=== PATIENT | female | born 1965 | race African-American/Black ===

== ENCOUNTER 2017-04-01 15:04 | Emergency (ER) | payer BC ==
[~2017-04-01] VITALS: Ht 172.7 cm; Wt 77.2 kg
[~2017-04-01 15:04] MED LIST: CEPHALEXIN500 MG OR; DULCOLAX5 MG OR; FOLIC ACID1 MG PO; LEVOTHROID25 MCG; NO HOME MEDS; ROBITUSSIN AC OR; TRAMADOL HCL50 MG OR; ULTRAM50 MG OR
[2017-04-01 16:53] LABS: HEMATOCRIT 39.5 % (37.0-47.0); HEMOGLOBIN 12.5 g/dl (12.0-16.0); IMMATURE GRANULOCYTES 0.3 % (0.0-1.0); MEAN CORPUSCULAR HGB 23.4 pG CALC (26.0-32.0); MEAN CORPUSCULAR HGB CONC 31.6 g/L CALC (32.0-36.0); NEUT# 5.66 thou/uL (2.00-7.15); RED BLOOD COUNT 5.34 mill/uL (4.20-5.60); RED CELL DISTRI WIDTH 14.4 % (11.5-15.5)
[2017-04-01 17:16] LABS: ALBUMIN 4.5 g/dL (3.2-5.0); ALKALINE PHOSPHATASE 102 u/l (38-126); ANION GAP 17 (6-22 (CALC)); BILIRUBIN, TOTAL 0.3 mg/dL (0.0-1.4); BUN 13 mg/dL (7-17); BUN/CREATININE RATIO 13 (12-20 (CALC)); CALCIUM 10.4 mg/dL (8.4-10.2); CARBON DIOXIDE 24 mmol/l (22-30); CHLORIDE 109 mmol/l (95-108); GFR 58 ML/MIN (>=60 (CALC)); GFR FOR AFR.AMER. > 60 ML/MIN (>=60 (CALC)); GLUCOSE 91 mg/dL (65-105); POTASSIUM 4.2 mmol/l (3.5-5.1); SGOT/AST 22 u/l (14-36); SGPT/ALT 29 u/l (9-52); SODIUM 145 mmol/l (137-146); TOTAL PROTEIN 7.8 g/dL (6.3-8.2)
[2017-04-01] MEDS ORDERED: ANTIVERT PO (17:20)
[2017-04-01 17:38] VITALS: BP 133/90
== END 2017-04-01 17:50 | disposition home or self-care (01) | DRG 149 ==
LOC: ED 15:04
PROVIDERS: Emergency Medicine
DX: R42 Dizziness and giddiness (principal); R11.0 Nausea; Z72.0 Tobacco use

== ENCOUNTER 2017-04-18 13:37 | Emergency (ER) | payer BC ==
[~2017-04-18] VITALS: Ht 172.7 cm; Wt 70.0 kg
[~2017-04-18 13:37] MED LIST changes: +ANTIVERT PO
[2017-04-18] MEDS ORDERED: ZITHROMAX250 MG PO (13:43)
[2017-04-18] MEDS ORDERED: ZOFRAN4 M1 PO (14:59)
[2017-04-18 15:00] VITALS: BP 114/69
== END 2017-04-18 15:05 | disposition home or self-care (01) | DRG 392 ==
LOC: ED 13:37
DX: K52.9 Noninfective gastroenteritis and colitis, unspecified (principal); R11.0 Nausea

== ENCOUNTER 2017-09-04 04:55 | Observation (INO) | payer BC ==
[~2017-09-04] VITALS: Ht 172.7 cm; Wt 80.7 kg
[~2017-09-04 04:55] MED LIST changes: +ZITHROMAX250 MG PO; +ZOFRAN4 M1 PO
--- NOTE | 2017-09-04 04:57 | NUR ---
PATIENT IMMEDIATELY TO TREATMENT AREA VIA WHEELCHAIR. UNDRESSED INTO A GOWN, PLACED ON MONITOR. TRIAGE COMPLETED AT BEDSIDE. AWAITING MD US.
--- NOTE | 2017-09-04 05:30 | NUR ---
RESTING QUIETLY AWAITING X-RAY
[2017-09-04 05:35] LABS: HEMATOCRIT 42.7 % (37.0-47.0); HEMOGLOBIN 13.5 g/dl (12.0-16.0); IMMATURE GRANULOCYTES 0.3 % (0.0-1.0); MEAN CELL VOLUME 75.3 fL CALC (80.0-100.0); MEAN CORPUSCULAR HGB 23.8 pG CALC (26.0-32.0); MEAN CORPUSCULAR HGB CONC 31.6 g/L CALC (32.0-36.0); NEUT# 3.72 thou/uL (2.00-7.15); RED BLOOD COUNT 5.67 mill/uL (4.20-5.60); RED CELL DISTRI WIDTH 14.7 % (11.5-15.5)
[2017-09-04 05:56] LABS: ALBUMIN 4.3 g/dL (3.2-5.0); ALKALINE PHOSPHATASE 74 u/l (38-126); AMYLASE 93 u/l (30-110); ANION GAP 9 (6-22 (CALC)); BILIRUBIN, TOTAL 0.3 mg/dL (0.0-1.4); BUN 14 mg/dL (7-17); BUN/CREATININE RATIO 16 (12-20 (CALC)); CARBON DIOXIDE 30 mmol/l (22-30); CHLORIDE 105 mmol/l (95-108); CREATININE 0.9 mg/dL (0.5-1.0); GFR > 60 ML/MIN (>=60 (CALC)); GFR FOR AFR.AMER. > 60 ML/MIN (>=60 (CALC)); LIPASE 294 u/l (23-300); POTASSIUM 4.1 mmol/l (3.5-5.1); SGOT/AST 22 u/l (14-36); SGPT/ALT 28 u/l (9-52); SODIUM 140 mmol/l (137-146); TOTAL PROTEIN 7.9 g/dL (6.3-8.2)
[2017-09-04 06:08] LABS: MYOGLOBIN 34 ng/mL (0 - 62)
--- NOTE | 2017-09-04 06:22 | NUR ---
CURRENTLY PAIN FREE. RESTING COMFORTABLY.
--- NOTE | 2017-09-04 06:55 | NUR ---
PATIENT RESTING AWAITING ROOM ASSIGNMENT PATIENT DENIES ANY CHEST PAIN OR DISCOMFORT AT THIS TIME
--- NOTE | 2017-09-04 07:11 | NUR ---
REPORT CALLED TO [facility] AND PATIENT TRANSPORTED
--- NOTE | 2017-09-04 07:26 | NUR ---
PT CAME FROM ER VIA WHEELCAHIR BY PATSY CHONG. STAY BY ASSIST FROM NURSE AND THEN TO BED. CALL LIGHT IN REACH.
[2017-09-04 07:30] VITALS: BP 113/78
[2017-09-04 09:47] LABS: CHOLESTEROL HDL RATIO 3.8 (<4.4 (CALC))
--- NOTE | 2017-09-04 09:51 | NUR ---
MONIQUE CASTRO AT BEDSIDE TO ASSESS PT.
[2017-09-04 11:22] LABS: URINE BILIRUBIN - DIPSTICK NEGATIVE (NEGATIVE); URINE BLOOD DIPSTICK NEGATIVE (NEGATIVE); URINE CLARITY CLOUDY; URINE COLOR YELLOW; URINE GLUCOSE - DIPSTICK NEGATIVE (NEGATIVE); URINE KETONE NEGATIVE (NEGATIVE); URINE LEUK ESTERASE MODERATE (NEGATIVE); URINE NITRITE - DIPSTICK NEGATIVE (Negative); URINE PH 5.5 (4.5-8.0); URINE PROTEIN - DIPSTICK NEGATIVE (NEG-TRACE); URINE UROBILINOGEN - DIPSTICK 0.2 E.U./dL (0.2)
[2017-09-04 11:25] LABS: URINE RBC 0-2 RBC/hpf (0-5); URINE SQUAMOUS EPITHELIAL CELL MODERATE EPI/hpf (0-FEW)
[2017-09-04 11:26] LABS: URINE BACTERIA FEW hpf
[2017-09-04 12:24] VITALS: BP 100/67
[2017-09-04] MEDS ORDERED: TRAMADOL HCL50 MG PO (12:29)
[2017-09-04] MEDS ORDERED: SYNTHROID125 MCG PO (12:32)
[2017-09-04] MEDS ORDERED: PEPCID20 MG PO (12:33)
--- NOTE | 2017-09-04 13:48 | NUR ---
Discharge instructions given. Patient verbalizes understanding of same. Discharged in stable condition via AMBULATION to Home with *Other. All belongings sent with pt.
== END 2017-09-04 13:48 | disposition home or self-care (01) | DRG 206 ==
LOC: ED 04:55 → ED-I 06:07 → ED 06:16 → MS2 06:17
PROVIDERS: Emergency Medicine; Nurse Practitioner Family; ADMIT Internal Medicine; ATTEND Internal Medicine
DX: M94.0 Chondrocostal junction syndrome [Tietze] (principal); E03.9 Hypothyroidism, unspecified; K21.9 Gastro-esophageal reflux disease without esophagitis; M19.90 Unspecified osteoarthritis, unspecified site; F17.210 Nicotine dependence, cigarettes, uncomplicated; K59.09 Other constipation
CPT/HCPCS: G0378; S0164

== ENCOUNTER 2018-01-26 12:01 | Emergency (ER) | payer BC ==
[~2018-01-26] VITALS: Ht 172.7 cm; Wt 82.0 kg
[~2018-01-26 12:01] MED LIST changes: +PEPCID20 MG PO; +SYNTHROID125 MCG PO; +TRAMADOL HCL50 MG PO
[2018-01-26] MEDS ORDERED: OMEPRAZOLE20 MG PO (12:10)
[2018-01-26 13:10] LABS: INFLUENZA A NONE DETECTED (NONE DETECT); INFLUENZA B NONE DETECTED (NONE DETECT)
[2018-01-26] MEDS ORDERED: TAM75CAP PO (13:35)
[2018-01-26] MEDS ORDERED: ZPAK PO (13:35)
[2018-01-26 13:40] VITALS: BP 123/84
== END 2018-01-26 13:40 | disposition home or self-care (01) | DRG 866 ==
LOC: ED 12:01
DX: B34.9 Viral infection, unspecified (principal); R50.9 Fever, unspecified; R05 Cough; R09.81 Nasal congestion; F17.210 Nicotine dependence, cigarettes, uncomplicated; R09.89 Other specified symptoms and signs involving the circulatory and respiratory systems

== ENCOUNTER 2018-02-09 08:43 | Emergency (ER) | payer BC ==
[~2018-02-09] VITALS: Ht 172.7 cm; Wt 75.0 kg
[~2018-02-09 08:43] MED LIST changes: +OMEPRAZOLE20 MG PO; +TAM75CAP PO; +ZPAK PO
[2018-02-09 09:06] LABS: HEMATOCRIT 41.3 % (37.0-47.0); HEMOGLOBIN 13.2 g/dl (12.0-16.0); IMMATURE GRANULOCYTES 0.2 % (0.0-5.0); MEAN CELL VOLUME 74.3 fL CALC (80.0-100.0); MEAN CORPUSCULAR HGB 23.7 pG CALC (26.0-32.0); NEUT# 2.95 thou/uL (2.00-7.15); RED BLOOD COUNT 5.56 mill/uL (4.20-5.60); RED CELL DISTRI WIDTH 14.2 % (11.5-15.5)
[2018-02-09 09:07] LABS: URINE BILIRUBIN - DIPSTICK NEGATIVE (NEGATIVE); URINE BLOOD DIPSTICK NEGATIVE (NEGATIVE); URINE CLARITY CLEAR; URINE COLOR YELLOW; URINE GLUCOSE - DIPSTICK NEGATIVE (NEGATIVE); URINE KETONE NEGATIVE (NEGATIVE); URINE LEUK ESTERASE NEGATIVE (Negative); URINE NITRITE - DIPSTICK NEGATIVE (Negative); URINE PROTEIN - DIPSTICK NEGATIVE (NEG-TRACE); URINE UROBILINOGEN - DIPSTICK 0.2 E.U./dL (0.2)
[2018-02-09] MEDS ORDERED: LEVAQUIN500 MG PO (09:07)
[2018-02-09] MEDS ORDERED: MUCINEX D1 TAB PO (09:07)
[2018-02-09 09:26] LABS: ALBUMIN 4.6 g/dL (3.2-5.0); ALKALINE PHOSPHATASE 68 u/l (38-126); ANION GAP 12 (6-22 (CALC)); BILIRUBIN, TOTAL 0.5 mg/dL (0.0-1.4); BUN 10 mg/dL (7-17); BUN/CREATININE RATIO 9 (12-20 (CALC)); CARBON DIOXIDE 28 mmol/l (22-30); CHLORIDE 108 mmol/l (95-108); CREATININE 1.1 mg/dL (0.5-1.0); GFR 52 ML/MIN (>=60 (CALC)); GFR FOR AFR.AMER. > 60 ML/MIN (>=60 (CALC)); POTASSIUM 4.3 mmol/l (3.5-5.1); SGOT/AST 19 u/l (14-36); SODIUM 143 mmol/l (137-146); TOTAL PROTEIN 8.4 g/dL (6.3-8.2)
[2018-02-09] MEDS ORDERED: CORTISPORIN OTI10 ML AU (11:18)
[2018-02-09 11:28] VITALS: BP 117/80
== END 2018-02-09 11:32 | disposition home or self-care (01) | DRG 866 ==
LOC: ED 08:43
PROVIDERS: Emergency Medicine
DX: B34.9 Viral infection, unspecified (principal); H60.91 Unspecified otitis externa, right ear; R53.1 Weakness; F17.200 Nicotine dependence, unspecified, uncomplicated; R09.89 Other specified symptoms and signs involving the circulatory and respiratory systems; H92.01 Otalgia, right ear

== ENCOUNTER → 2018-05-15 | Outpatient (REF) | payer BC ==
[~2018-05-15] MED LIST changes: +AUGMENTIN875TAB PO; +CETIRIZINE10 MG PO; +CORTISPORIN OTI10 ML AU; +LEVAQUIN500 MG PO; +MEDDOSEPAK PO; +MUCINEX D1 TAB PO; +PROVENTIL108 MCG/AC IN
== END | disposition home or self-care (01) | DRG 951 ==
LOC: MAMMO 12:40
PROVIDERS: ATTEND Nurse Practitioner Family
DX: Z12.31 Encounter for screening mammogram for malignant neoplasm of breast (principal); N95.1 Menopausal and female climacteric states

== ENCOUNTER 2018-06-12 13:02 | Emergency (ER) | payer BC ==
[~2018-06-12] VITALS: Ht 172.7 cm; Wt 80.0 kg
[~2018-06-12 13:02] MED LIST changes: -AUGMENTIN875TAB PO; -CETIRIZINE10 MG PO; -MEDDOSEPAK PO; -PROVENTIL108 MCG/AC IN
[2018-06-12] MEDS ORDERED: AUGMENTIN875TAB PO (13:45)
[2018-06-12] MEDS ORDERED: CETIRIZINE10 MG PO (14:09)
[2018-06-12 14:58] VITALS: BP 137/80
== END 2018-06-12 14:58 | disposition home or self-care (01) | DRG 153 ==
LOC: ED 13:02
DX: J06.9 Acute upper respiratory infection, unspecified (principal); F17.200 Nicotine dependence, unspecified, uncomplicated

== ENCOUNTER 2018-06-14 15:43 | Emergency (ER) | payer BC ==
[~2018-06-14] VITALS: Ht 172.7 cm; Wt 80.0 kg
[~2018-06-14 15:43] MED LIST changes: +AUGMENTIN875TAB PO; +CETIRIZINE10 MG PO
[2018-06-14 16:00] VITALS: BP 120/83
[2018-06-14 17:15] LABS: HEMATOCRIT 40.7 % (37.0-47.0); HEMOGLOBIN 12.6 g/dl (12.0-16.0); IMMATURE GRANULOCYTES 0.1 % (0.0-5.0); MEAN CELL VOLUME 74.3 fL CALC (80.0-100.0); NEUT# 3.22 thou/uL (2.00-7.15); RED BLOOD COUNT 5.48 mill/uL (4.20-5.60); RED CELL DISTRI WIDTH 14.1 % (11.5-15.5)
[2018-06-14 17:22] LABS: URINE BILIRUBIN - DIPSTICK NEGATIVE (NEGATIVE); URINE BLOOD DIPSTICK NEGATIVE (NEGATIVE); URINE COLOR YELLOW; URINE GLUCOSE - DIPSTICK NEGATIVE (NEGATIVE); URINE KETONE NEGATIVE (NEGATIVE); URINE LEUK ESTERASE NEGATIVE (NEGATIVE); URINE NITRITE - DIPSTICK NEGATIVE (Negative); URINE PH 5.5 (4.5-8.0); URINE PROTEIN - DIPSTICK NEGATIVE (NEG-TRACE); URINE SPECIFIC GRAVITY >=1.030; URINE UROBILINOGEN - DIPSTICK 0.2 E.U./dL (0.2)
[2018-06-14 17:33] LABS: ALBUMIN 4.4 g/dL (3.2-5.0); ALKALINE PHOSPHATASE 68 u/l (38-126); ANION GAP 14 (6-22 (CALC)); BILIRUBIN, TOTAL 0.4 mg/dL (0.0-1.4); BUN 14 mg/dL (7-17); BUN/CREATININE RATIO 15 (12-20 (CALC)); CARBON DIOXIDE 25 mmol/l (22-30); CHLORIDE 107 mmol/l (95-108); CREATININE 0.9 mg/dL (0.5-1.0); GFR > 60 ML/MIN (>=60 (CALC)); GFR FOR AFR.AMER. > 60 ML/MIN (>=60 (CALC)); POTASSIUM 4.3 mmol/l (3.5-5.1); SGOT/AST 20 u/l (14-36); SODIUM 141 mmol/l (137-146); TOTAL PROTEIN 7.8 g/dL (6.3-8.2)
[2018-06-14] MEDS ORDERED: PROVENTIL108 MCG/AC IN (18:30)
[2018-06-14] MEDS ORDERED: MEDDOSEPAK PO (18:30)
== END 2018-06-14 19:00 | disposition home or self-care (01) | DRG 204 ==
LOC: ED 15:43
PROVIDERS: Emergency Medicine
DX: R05 Cough (principal); F17.200 Nicotine dependence, unspecified, uncomplicated

== ENCOUNTER 2018-07-20 08:51 | Emergency (ER) | payer BC ==
[~2018-07-20] VITALS: Ht 172.7 cm; Wt 80.0 kg
[~2018-07-20 08:51] MED LIST changes: +MEDDOSEPAK PO; +PROVENTIL108 MCG/AC IN
[2018-07-20 10:03] LABS: HEMATOCRIT 40.5 % (37.0-47.0); HEMOGLOBIN 12.5 g/dl (12.0-16.0); IMMATURE GRANULOCYTES 0.3 % (0.0-5.0); MEAN CELL VOLUME 75.7 fL CALC (80.0-100.0); MEAN CORPUSCULAR HGB 23.4 pG CALC (26.0-32.0); MEAN CORPUSCULAR HGB CONC 30.9 g/L CALC (32.0-36.0); NEUT# 4.4 thou/uL (2.00-7.15); RED BLOOD COUNT 5.35 mill/uL (4.20-5.60); RED CELL DISTRI WIDTH 14.7 % (11.5-15.5)
[2018-07-20 10:10] LABS: URINE BILIRUBIN - DIPSTICK NEGATIVE (NEGATIVE); URINE BLOOD DIPSTICK NEGATIVE (NEGATIVE); URINE COLOR YELLOW; URINE GLUCOSE - DIPSTICK NEGATIVE (NEGATIVE); URINE KETONE NEGATIVE (NEGATIVE); URINE LEUK ESTERASE NEGATIVE (Negative); URINE NITRITE - DIPSTICK NEGATIVE (Negative); URINE PROTEIN - DIPSTICK NEGATIVE (NEG-TRACE); URINE SPECIFIC GRAVITY 1.015; URINE UROBILINOGEN - DIPSTICK 0.2 E.U./dL (0.2)
[2018-07-20 10:15] LABS: URINE CLARITY CLEAR
[2018-07-20] MEDS ORDERED: LEVOTHYROXINE137 MCG PO (10:17)
[2018-07-20 10:25] LABS: ALBUMIN 4.2 g/dL (3.2-5.0); ALKALINE PHOSPHATASE 68 u/l (38-126); ANION GAP 13 (6-22 (CALC)); BILIRUBIN, TOTAL 0.4 mg/dL (0.0-1.4); BUN 9 mg/dL (7-17); BUN/CREATININE RATIO 11 (12-20 (CALC)); CARBON DIOXIDE 28 mmol/l (22-30); CHLORIDE 108 mmol/l (95-108); CREATININE 0.8 mg/dL (0.5-1.0); GFR > 60 ML/MIN (>=60 (CALC)); GFR FOR AFR.AMER. > 60 ML/MIN (>=60 (CALC)); POTASSIUM 4.2 mmol/l (3.5-5.1); SGOT/AST 16 u/l (14-36); SODIUM 144 mmol/l (137-146); TOTAL PROTEIN 7.1 g/dL (6.3-8.2)
[2018-07-20] MEDS ORDERED: ZITHROMAX250 MG PO (10:33)
[2018-07-20 10:36] VITALS: BP 138/88
== END 2018-07-20 10:36 | disposition home or self-care (01) | DRG 153 ==
LOC: ED 08:51
PROVIDERS: Emergency Medicine
DX: J06.9 Acute upper respiratory infection, unspecified (principal); B34.9 Viral infection, unspecified; R05 Cough; R09.81 Nasal congestion; F17.200 Nicotine dependence, unspecified, uncomplicated

== ENCOUNTER 2018-11-23 10:18 | Emergency (ER) | payer BC ==
[~2018-11-23] VITALS: Ht 172.7 cm; Wt 81.8 kg
[~2018-11-23 10:18] MED LIST changes: +LEVOTHYROXINE137 MCG PO
[2018-11-23 10:48] LABS: HEMOGLOBIN 12.5 g/dl (12.0-16.0); IMMATURE GRANULOCYTES 0.2 % (0.0-5.0); MEAN CELL VOLUME 73.7 fL CALC (80.0-100.0); MEAN CORPUSCULAR HGB CONC 31.3 g/L CALC (32.0-36.0); NEUT# 3.14 thou/uL (2.00-7.15); RED BLOOD COUNT 5.43 mill/uL (4.20-5.60); RED CELL DISTRI WIDTH 14.6 % (11.5-15.5)
[2018-11-23 10:53] LABS: URINE BILIRUBIN - DIPSTICK NEGATIVE (NEGATIVE); URINE BLOOD DIPSTICK NEGATIVE (NEGATIVE); URINE COLOR YELLOW; URINE GLUCOSE - DIPSTICK NEGATIVE (NEGATIVE); URINE KETONE NEGATIVE (NEGATIVE); URINE LEUK ESTERASE NEGATIVE (NEGATIVE); URINE NITRITE - DIPSTICK NEGATIVE (Negative); URINE PH 7.5 (4.5-8.0); URINE PROTEIN - DIPSTICK NEGATIVE (NEG-TRACE); URINE SPECIFIC GRAVITY 1.015; URINE UROBILINOGEN - DIPSTICK 0.2 E.U./dL (0.2)
[2018-11-23 11:26] LABS: ALKALINE PHOSPHATASE 73 u/l (38-126); AMYLASE 73 u/l (30-110); ANION GAP 12 (6-22 (CALC)); BILIRUBIN, TOTAL 0.3 mg/dL (0.0-1.4); BUN 10 mg/dL (7-17); BUN/CREATININE RATIO 12 (12-20 (CALC)); CARBON DIOXIDE 29 mmol/l (22-30); CHLORIDE 106 mmol/l (95-108); CREATININE 0.8 mg/dL (0.5-1.0); GFR > 60 ML/MIN (>=60 (CALC)); GFR FOR AFR.AMER. > 60 ML/MIN (>=60 (CALC)); LIPASE 232 u/l (23-300); POTASSIUM 4.5 mmol/l (3.5-5.1); SGOT/AST 18 u/l (14-36); SODIUM 142 mmol/l (137-146); TOTAL PROTEIN 7.3 g/dL (6.3-8.2)
[2018-11-23 11:35] LABS: MYOGLOBIN 40 ng/mL (0 - 62)
[2018-11-23] MEDS ORDERED: PREVACID30 M3 PO (12:21)
[2018-11-23] MEDS ORDERED: ONDANSETRON4 MG PO (12:21)
[2018-11-23 12:25] VITALS: BP 119/81
== END 2018-11-23 12:30 | disposition home or self-care (01) | DRG 392 ==
LOC: ED 10:18
PROVIDERS: Emergency Medicine
DX: K29.70 Gastritis, unspecified, without bleeding (principal); E03.9 Hypothyroidism, unspecified; F17.200 Nicotine dependence, unspecified, uncomplicated

== ENCOUNTER 2018-12-30 08:21 | Day surgery (SDC) | payer BC ==
[~2018-12-30] VITALS: Ht 172.7 cm; Wt 77.1 kg
[~2018-12-30 08:21] MED LIST changes: +ALLEGRA-D 2424 HOUR PO; +ALLERGY NA50 MCG/ACT; +ONDANSETRON4 MG PO; +PREVACID30 M3 PO; +TUMS ULTRA 101000 MG PO
[2018-12-30 08:44] LABS: BARBITURATES NEGATIVE (NEGATIVE); COCAINE NEGATIVE (NEGATIVE); METHADONE NEGATIVE (NEGATIVE); OXCYCODONE NEGATIVE (NEGATIVE); TETRAHYDROCANNABIONOL NEGATIVE (NEGATIVE); TRICYLIC ANTIDEPRESSANTS NEGATIVE (NEGATIVE)
[2018-12-30 09:36] VITALS: BP 102/65
== END 2018-12-30 09:50 | disposition home or self-care (01) | DRG 392 ==
LOC: ENDO 08:21 → ORM 08:45 → ENDO 09:50
PROVIDERS: ATTEND Surgery
PROC: 0DB48ZX Excision of Esophagogastric Junction, Via Natural or Artificial Opening Endoscopic, Diagnostic (ICD-10-PCS; principal; 2018-12-30)
DX: K21.0 Gastro-esophageal reflux disease with esophagitis (principal); K29.70 Gastritis, unspecified, without bleeding; K44.9 Diaphragmatic hernia without obstruction or gangrene; E03.9 Hypothyroidism, unspecified; F17.210 Nicotine dependence, cigarettes, uncomplicated; Z79.899 Other long term (current) drug therapy

== ENCOUNTER 2020-10-09 08:48 | Emergency (ER) | payer OTHER ==
[~2020-10-09] VITALS: Ht 172.7 cm; Wt 77.0 kg
[2020-10-09] MEDS ORDERED: OMEPRAZOLE10 MG PO (09:01)
[2020-10-09] MEDS ORDERED: MULTIVITAMI1 PO (09:01)
[2020-10-09 10:20] VITALS: BP 118/75
== END 2020-10-09 10:20 | disposition left against medical advice (07) | DRG 392 ==
LOC: ED 08:48
DX: R11.0 Nausea (principal); R10.13 Epigastric pain; K21.9 Gastro-esophageal reflux disease without esophagitis; E03.9 Hypothyroidism, unspecified; F17.290 Nicotine dependence, other tobacco product, uncomplicated; Z91.19 Patient's noncompliance with other medical treatment and regimen; Z20.822 Contact with and (suspected) exposure to COVID-19

== ENCOUNTER 2021-05-16 07:45 | Emergency (ER) | payer OTHER ==
[~2021-05-16] VITALS: Ht 172.7 cm; Wt 81.0 kg
[~2021-05-16 07:45] MED LIST changes: +MULTIVITAMI1 PO; +OMEPRAZOLE10 MG PO
[2021-05-16] MEDS ORDERED: TESSALON PERLE100 MG PO (09:10)
[2021-05-16] MEDS ORDERED: TORADOL PO (09:10)
[2021-05-16 09:32] VITALS: BP 117/84
== END 2021-05-16 09:38 | disposition home or self-care (01) | DRG 153 ==
LOC: ED 07:45
DX: J11.1 Influenza due to unidentified influenza virus with other respiratory manifestations (principal); E03.9 Hypothyroidism, unspecified; K21.9 Gastro-esophageal reflux disease without esophagitis; F17.210 Nicotine dependence, cigarettes, uncomplicated; Z20.822 Contact with and (suspected) exposure to COVID-19

== ENCOUNTER 2021-06-19 03:44 | Emergency (ER) | payer OTHER ==
[~2021-06-19] VITALS: Ht 172.7 cm; Wt 82.0 kg
[~2021-06-19 03:44] MED LIST changes: +TESSALON PERLE100 MG PO; +TORADOL PO
[2021-06-19 04:24] LABS: HEMATOCRIT 38.4 % (37.0-47.0); HEMOGLOBIN 12.1 g/dl (12.0-16.0); IMMATURE GRANULOCYTES 0.1 % (0.0-5.0); MEAN CORPUSCULAR HGB 23.6 pG CALC (26.0-32.0); MEAN CORPUSCULAR HGB CONC 31.5 g/dL CAL (32.0-36.0); NEUT# 5.53 thou/uL (2.00-7.15); RED BLOOD COUNT 5.12 mill/uL (4.20-5.60); RED CELL DISTRI WIDTH 14.3 % (11.5-15.5)
[2021-06-19 04:30] VITALS: BP 111/67
[2021-06-19 04:40] LABS: ALBUMIN 4.1 g/dL (3.2-5.0); ALKALINE PHOSPHATASE 72 u/l (38-126); AMYLASE 94 u/l (30-110); BILIRUBIN, TOTAL 0.3 mg/dL (0.0-1.4); BUN 16 mg/dL (7-17); BUN/CREATININE RATIO 17 (12-20 (CALC)); CARBON DIOXIDE 27 mmol/l (22-30); CHLORIDE 107 mmol/l (95-108); CREATININE 0.9 mg/dL (0.5-1.0); GFR > 60 ML/MIN (>=60 (CALC)); GFR FOR AFR.AMER. > 60 ML/MIN (>=60 (CALC)); LIPASE 429 u/l (23-300); SODIUM 140 mmol/l (137-146); TOTAL PROTEIN 7.5 g/dL (6.3-8.2)
[2021-06-19 04:47] LABS: ANION GAP 9 (6-22 (CALC)); POTASSIUM 3.3 mmol/l (3.5-5.1); SGOT/AST 38 u/l (14-36)
[2021-06-19 04:51] LABS: MYOGLOBIN 34 ng/mL (0 - 62)
[2021-06-19 05:00] VITALS: BP 114/73
[2021-06-19 06:06] LABS: URINE BILIRUBIN - DIPSTICK NEGATIVE (NEGATIVE); URINE BLOOD DIPSTICK NEGATIVE (NEGATIVE); URINE COLOR YELLOW; URINE GLUCOSE - DIPSTICK NEGATIVE (NEGATIVE); URINE KETONE NEGATIVE (NEGATIVE); URINE LEUK ESTERASE NEGATIVE (NEGATIVE); URINE PH 5.5 (4.5-8.0); URINE PROTEIN - DIPSTICK NEGATIVE (NEG-TRACE); URINE SPECIFIC GRAVITY 1.015; URINE UROBILINOGEN - DIPSTICK 0.2 E.U./dL (0.2)
[2021-06-19 06:10] LABS: URINE NITRITE - DIPSTICK NEGATIVE (Negative)
[2021-06-19] MEDS ORDERED: ZOFRAN4 MG/TAB PO (08:37)
[2021-06-19 08:50] VITALS: BP 114/73
== END 2021-06-19 09:09 | disposition home or self-care (01) | DRG 392 ==
LOC: ED 03:44
PROVIDERS: Emergency Medicine
DX: R10.13 Epigastric pain (principal); R10.11 Right upper quadrant pain; K80.20 Calculus of gallbladder without cholecystitis without obstruction; K29.70 Gastritis, unspecified, without bleeding; E03.9 Hypothyroidism, unspecified; K21.9 Gastro-esophageal reflux disease without esophagitis; F17.200 Nicotine dependence, unspecified, uncomplicated; Z20.822 Contact with and (suspected) exposure to COVID-19
CPT/HCPCS: Q9967; S0164

== ENCOUNTER 2022-02-01 07:27 | Emergency (ER) | payer SELFPAY ==
[2022-02-01] VITALS (11 sets, daily range): BP systolic 120–143; BP diastolic 78–95
[~2022-02-01] VITALS: Ht 172.7 cm; Wt 81.0 kg
[~2022-02-01 07:27] MED LIST changes: +ZOFRAN4 MG/TAB PO
[2022-02-01] MEDS ORDERED: OMEPRAZOLE DR40 MG PT (07:50)
[2022-02-01 07:52] LABS: URINE BILIRUBIN - DIPSTICK NEGATIVE (NEGATIVE); URINE BLOOD DIPSTICK NEGATIVE (NEGATIVE); URINE COLOR YELLOW; URINE GLUCOSE - DIPSTICK NEGATIVE (NEGATIVE); URINE KETONE NEGATIVE (NEGATIVE); URINE LEUK ESTERASE NEGATIVE (NEGATIVE); URINE PH 6.5 (4.5-8.0); URINE PROTEIN - DIPSTICK NEGATIVE (NEG-TRACE); URINE SPECIFIC GRAVITY <=1.005; URINE UROBILINOGEN - DIPSTICK 0.2 E.U./dL (0.2)
[2022-02-01 07:52] LABS: HEMATOCRIT 40.3 % (37.0-47.0); HEMOGLOBIN 12.9 g/dl (12.0-16.0); IMMATURE GRANULOCYTES 0.1 % (0.0-5.0); MEAN CELL VOLUME 73.9 fL CALC (80.0-100.0); MEAN CORPUSCULAR HGB 23.7 pG CALC (26.0-32.0); NEUT# 4.41 thou/uL (2.00-7.15); RED BLOOD COUNT 5.45 mill/uL (4.20-5.60); RED CELL DISTRI WIDTH 15.2 % (11.5-15.5)
[2022-02-01 07:53] LABS: URINE NITRITE - DIPSTICK NEGATIVE (Negative)
[2022-02-01 08:10] LABS: ALBUMIN 4.7 g/dL (3.2-5.0); ALKALINE PHOSPHATASE 69 u/l (38-126); BUN 12 mg/dL (7-17); BUN/CREATININE RATIO 14 (12-20 (CALC)); CARBON DIOXIDE 27 mmol/l (22-30); CHLORIDE 106 mmol/l (95-108); CREATININE 0.9 mg/dL (0.5-1.0); GFR FOR AFR.AMER. > 60 ML/MIN (>=60 (CALC)); GFR OTHER RACES > 60 ML/MIN (>=60 (CALC)); LIPASE 261 u/l (23-300); SGOT/AST 36 u/l (14-36); SODIUM 140 mmol/l (137-146); TOTAL PROTEIN 8.7 g/dL (6.3-8.2)
[2022-02-01 08:12] LABS: ANION GAP 12 (6-22 (CALC)); BILIRUBIN, TOTAL 0.6 mg/dL (0.0-1.4); POTASSIUM 4.8 mmol/l (3.5-5.1)
[2022-02-01] MEDS ORDERED: PEPCID AC20 M1 PO (09:42)
== END 2022-02-01 10:20 | disposition home or self-care (01) | DRG 392 ==
LOC: ED 07:27
PROVIDERS: Family Medicine
DX: R10.13 Epigastric pain (principal); K21.9 Gastro-esophageal reflux disease without esophagitis
CPT/HCPCS: Q9967

== ENCOUNTER 2022-06-04 14:30 | Emergency (ER) | payer BC ==
[~2022-06-04] VITALS: Ht 172.7 cm; Wt 81.6 kg
[~2022-06-04 14:30] MED LIST changes: +OMEPRAZOLE DR40 MG PT; +PEPCID AC20 M1 PO
[2022-06-04 15:30] VITALS: BP 123/79
[2022-06-04 15:45] VITALS: BP 117/89
[2022-06-04] MEDS ORDERED: ALLERGY RE50 MCG/ACT (15:45)
[2022-06-04] MEDS ORDERED: ZYRTEC10 MG PO (15:45)
[2022-06-04] MEDS ORDERED: MEDDOSEPAK PO (15:47)
[2022-06-04 16:00] VITALS: BP 124/88
[2022-06-04 16:03] VITALS: BP 124/88
== END 2022-06-04 16:09 | disposition home or self-care (01) | DRG 153 ==
LOC: ED 14:30
DX: J30.9 Allergic rhinitis, unspecified (principal); Z20.822 Contact with and (suspected) exposure to COVID-19; F17.210 Nicotine dependence, cigarettes, uncomplicated; E03.9 Hypothyroidism, unspecified; K21.9 Gastro-esophageal reflux disease without esophagitis

== ENCOUNTER 2022-10-03 22:30 | Emergency (ER) | payer BC ==
[~2022-10-03] VITALS: Ht 172.7 cm; Wt 78.0 kg
[~2022-10-03 22:30] MED LIST changes: +ALLERGY RE50 MCG/ACT; +ZYRTEC10 MG PO
[2022-10-03] MEDS ORDERED: LEVOTHYROXIN100 MCG PO (23:11)
[2022-10-03 23:20] LABS: BASO% 0.4 % (0-3); EOS% 3.2 % (0-8); HEMATOCRIT 40.5 % (37.0-47.0); HEMOGLOBIN 12.5 g/dl (12.0-16.0); IMMATURE GRANULOCYTES 0.2 % (0.0-5.0); MEAN CELL VOLUME 75.7 fL CALC (80.0-100.0); MEAN CORPUSCULAR HGB 23.4 pG CALC (26.0-32.0); MEAN CORPUSCULAR HGB CONC 30.9 g/dL CAL (32.0-36.0); MONO% 7.4 % (2-13); NEUT# 3.88 thou/uL (2.00-7.15); NEUT% 42.8 % (42-76); RED BLOOD COUNT 5.35 mill/uL (4.20-5.60); RED CELL DISTRI WIDTH 14.1 % (11.5-15.5)
[2022-10-03 23:42] LABS: ALBUMIN 3.9 g/dL (3.2-5.0); ALKALINE PHOSPHATASE 66 u/l (38-126); ANION GAP 10 (6-22 (CALC)); BUN 12 mg/dL (7-17); BUN/CREATININE RATIO 13 (12-20 (CALC)); CARBON DIOXIDE 26 mmol/l (22-30); CHLORIDE 109 mmol/l (95-108); CREATININE 0.9 mg/dL (0.5-1.0); GFR FOR AFR.AMER. > 60 ML/MIN (>=60 (CALC)); GFR OTHER RACES > 60 ML/MIN (>=60 (CALC)); POTASSIUM 3.9 mmol/l (3.5-5.1); SGOT/AST 24 u/l (14-36); SODIUM 141 mmol/l (137-146); TOTAL PROTEIN 7.2 g/dL (6.3-8.2)
[2022-10-03 23:44] LABS: BILIRUBIN, TOTAL 0.3 mg/dL (0.02-1.3)
[2022-10-04] MEDS ORDERED: ALDACTONE25 MG PO (00:29)
[2022-10-04 00:54] VITALS: BP 159/91
== END 2022-10-04 00:54 | disposition home or self-care (01) | DRG 948 ==
LOC: ED 22:30
PROVIDERS: Emergency Medicine
DX: R60.0 Localized edema (principal); E03.9 Hypothyroidism, unspecified; K21.9 Gastro-esophageal reflux disease without esophagitis; F17.200 Nicotine dependence, unspecified, uncomplicated

== ENCOUNTER 2022-10-13 19:25 | Emergency (ER) | payer BC ==
[~2022-10-13] VITALS: Ht 172.7 cm; Wt 79.3 kg
[~2022-10-13 19:25] MED LIST changes: +ALDACTONE25 MG PO; +LEVOTHYROXIN100 MCG PO
[2022-10-13 19:57] VITALS: BP 121/85
[2022-10-13 20:00] VITALS: BP 134/81
[2022-10-13 20:15] VITALS: BP 120/88
[2022-10-13 20:34] LABS: BASO% 0.4 % (0-3); EOS% 0.2 % (0-8); HEMATOCRIT 45.8 % (37.0-47.0); HEMOGLOBIN 14.3 g/dl (12.0-16.0); LYMPH% 74.8 % (15-41); MEAN CELL VOLUME 73.8 fL CALC (80.0-100.0); MEAN CORPUSCULAR HGB CONC 31.2 g/dL CAL (32.0-36.0); NEUT# 0.64 thou/uL (2.00-7.15); NEUT% 13.6 % (42-76); RED BLOOD COUNT 6.21 mill/uL (4.20-5.60)
[2022-10-13] MEDS ORDERED: PAXLOVID PO (20:48)
[2022-10-13 21:09] VITALS: BP 123/84
== END 2022-10-13 21:20 | disposition home or self-care (01) | DRG 179 ==
LOC: ED 19:25
PROVIDERS: Family Medicine
DX: U07.1 COVID-19 (principal); R50.9 Fever, unspecified; R52 Pain, unspecified; J02.9 Acute pharyngitis, unspecified; E03.9 Hypothyroidism, unspecified; K21.9 Gastro-esophageal reflux disease without esophagitis; F17.200 Nicotine dependence, unspecified, uncomplicated

== ENCOUNTER 2023-05-09 10:42 | Emergency (ER) | payer OTHER ==
[~2023-05-09] VITALS: Ht 172.7 cm; Wt 70.0 kg
[~2023-05-09 10:42] MED LIST changes: +PAXLOVID PO
[2023-05-09] MEDS ORDERED: AMOXICILLIN500 M2 PO (12:10)
[2023-05-09 12:24] VITALS: BP 136/82
== END 2023-05-09 12:24 | disposition home or self-care (01) | DRG 156 ==
LOC: ED 10:42
DX: H92.01 Otalgia, right ear (principal); J06.9 Acute upper respiratory infection, unspecified; J02.9 Acute pharyngitis, unspecified; E03.9 Hypothyroidism, unspecified; F17.200 Nicotine dependence, unspecified, uncomplicated; Z20.822 Contact with and (suspected) exposure to COVID-19

== ENCOUNTER 2023-12-10 07:28 | Emergency (ER) | payer OTHER ==
[~2023-12-10] VITALS: Ht 172.7 cm; Wt 82.0 kg
[~2023-12-10 07:28] MED LIST changes: +AMOXICILLIN500 M2 PO; +ATORVASTATIN CA10 MG PO; +NAPROXEN500 MG PO; +PREDNISONE20 MG PO
[2023-12-10 07:33] VITALS: BP 143/92
[2023-12-10 07:45] VITALS: BP 132/87
[2023-12-10 08:00] VITALS: BP 128/86
[2023-12-10 08:15] VITALS: BP 137/88
[2023-12-10 08:30] VITALS: BP 144/92
[2023-12-10 08:37] VITALS: BP 144/92
== END 2023-12-10 08:45 | disposition home or self-care (01) | DRG 153 ==
LOC: ED 07:28
DX: J06.9 Acute upper respiratory infection, unspecified (principal); E03.9 Hypothyroidism, unspecified; K21.9 Gastro-esophageal reflux disease without esophagitis; F17.200 Nicotine dependence, unspecified, uncomplicated; Z20.822 Contact with and (suspected) exposure to COVID-19